=== PATIENT | male | born 1980 | race Caucasian/White ===

== ENCOUNTER 2021-05-22 20:02 | Inpatient (IN) | payer BC ==
[~2021-05-22] VITALS: Ht 182.9 cm; Wt 108.0 kg
[2021-05-22 20:29] VITALS: BP 160/104
[2021-05-22 21:33] LABS: ABSOLUTE NEUTROPHILS 11.2 thou/uL (1.4-8.2); BASOPHILS 0.3 % (0.0-2.0); EOSINOPHILS 1.5 % (0.0-3.0); HEMOGLOBIN 14.5 gm/dL (14.0-18.0); LYMPHOCYTES 8.8 % (24.0-44.0); MCH 33.3 pg (26.0-34.0); MCHC 34.6 g/dL (28.0-37.0); MCV 96.3 fL (80.0-100.0); MONOCYTES 6.9 % (1.0-8.0); PLATELET COUNT 247 thou/uL (150-400); POLYS 82.5 % (36.0-66.0); RBC 4.36 mil/uL (4.50-6.00); RDW 12.5 % (10.5-14.5); WBC 13.5 thou/uL (4.0-11.0)
[2021-05-22 21:42] LABS: CREATININE 1.3 mg/dL (0.7-1.3)
[2021-05-22 21:44] LABS: URINE BILIRUBIN NEGATIVE (Negative); URINE BLOOD NEGATIVE (Negative); URINE CLARITY CLEAR; URINE COLOR YELLOW; URINE GLUCOSE-RANDOM* NEGATIVE (Negative); URINE KETONES NEGATIVE (Negative); URINE LEUKOCYTES-REFLEX NEGATIVE (Negative); URINE NITRITE-REFLEX NEGATIVE (Negative); URINE PROTEIN (DIPSTICK) NEGATIVE (Negative); URINE UROBILINOGEN 0.2 E.U./dl (0.2-1.0)
[2021-05-22 21:50] LABS: ALBUMIN 3.9 g/dL (3.4-5.0); TOTAL BILIRUBIN 0.4 mg/dL (0.2-1.0); TOTAL PROTEIN 7.6 g/dL (6.4-8.2)
[2021-05-23 00:23] VITALS: BP 152/92
[2021-05-23 00:33] VITALS: BP 147/83
[2021-05-23 01:00] VITALS: BP 141/86
[2021-05-23 08:44] VITALS: BP 151/88
[2021-05-23 15:50] VITALS: BP 151/98
[2021-05-23 16:31] VITALS: BP 151/98
--- NOTE | 2021-05-27 15:08 | PATH ---
[facility] [address] [place] [address] PATHOLOGY RPT PROCEDURE Name: SHELLEY CHAVEZ Room #: 442-P [facility] IN M.R.#: [id number] Admission: 05/22/21 Date of : 78 Discharge: 05/23/21 Report #: [id number] Path Case #: [id number] [facility] Accession Number: [id number] . 01 Material submitted: . appendix - APPENDIX . 01 Clinical history: . LAPAROSCOPIC APPENDECTOMY ACUTE APPENDICITIS . 02 Diagnosis: Appendix, appendectomy: - Marked acute appendicitis along with acute serositis. (IUV:gloria; 05/27/2021) S 05/27/2021 1441 Local . 02 Electronically signed: . Josefina Alcazar MD, Pathologist NPI- [id number] . 01 Gross description: . Fixative: Formalin Labeled: Appendix Appendix length: 6.5 cm Appendix diameter: 0.9-1.2 cm Mesoappendix: 2.4 cm Proximal margin: Stapled Serosa: Ritter-lambert with red-brown adhesions. Cut surface: Ritter-lambert Luminal diameter: 0.1-0.5 cm Perforation: Not present Lesions/abnormalities: Not present A1 Proximal margin (inked black) and distal tip, bisected A2 Mid appendix (MRF; 05/26/2021) MFE/MFE 05/26/2021 [facility]6 Local . 02 Pathologist provided ICD-10: K35.80, K65.8 . 02 CPT . 417915 Specimen Comment: A courtesy copy of this report has been sent to [phone] Specimen Comment: [phone] Specimen Comment: Report sent to / DR TOBIN [address] [address] PATHOLOGY RPT PROCEDURE Name: SHELLEY CHAVEZ Room #: 442-P [facility] IN .R.#: [id number] Admission: 05/22/21 Date of : 78 Discharge: 05/23/21 Report #: [id number] Path Case #: [id number] Performed at: 01 [facility] [address], [place] [id number] MD Jeronimo Fernandez MD Phone: [phone] Performed at: [address] [id number] MD Josefian Alcazar MD Phone: [phone]
== END 2021-05-23 17:17 | disposition home or self-care (01) | DRG 343 ==
LOC: ER 20:02 → EROBS 23:21 → 4S 05-23 00:40
PROVIDERS: Physician Assistant; ADMIT Surgery; ATTEND Surgery
PROC: 0DTJ4ZZ Resection of Appendix, Percutaneous Endoscopic Approach (ICD-10-PCS; principal; 2021-05-23)
DX: K35.80 Unspecified acute appendicitis (principal); I10 Essential (primary) hypertension; E78.5 Hyperlipidemia, unspecified; F41.9 Anxiety disorder, unspecified; Z20.822 Contact with and (suspected) exposure to COVID-19; Z88.0 Allergy status to penicillin
CPT/HCPCS: 50010; 50101; 50411; 50555; 50739; 50740; 51489; 52265; 52266; 53307; 53312; 53314; 56525; 56526; 58574; 62110; 62900; 65131; 70005